=== PATIENT | female | born 1985 | race African-American/Black ===

== ENCOUNTER 2017-04-25 15:06 | Observation (INO) ==
[2017-04-25 15:35] LABS: Basophils % 0.1 % (0.0-0.8); Hematocrit 35.6 VOL% (35.7-47.0); Hemoglobin 12.4 GM/DL (12.0-16.0); Immature Granulocytes % 0.3 %; Immature Granulocytes Absolute 0.03 #; Lymphocytes # 1.5 10*3/uL (1.4-4.0); Lymphocytes % 15.4 % (21.3-54.2); Mean Corpuscular HGB Conc 34.8 GM/DL (32-36); Mean Corpuscular Hemoglobin 30 PG (27-34); Mean Corpuscular Volume 86.4 FL (87-102); Mean Platelet Volume 9.9 FL (9.6-12.0); Monocytes # 0.6 10*3/uL (0.11-0.8); Monocytes % 5.9 % (1.7-12.7); Neutrophils # 7.7 10*3/uL (1.4-7.4); Neutrophils % 78.3 % (38.7-73.9); Platelet Count 307 T/CUMM (130-400); Red Blood Count 4.12 MC/CUMM (3.8-5.5); Red Cell Distribution Width 14.6 % (9.3-17.3); White Blood Count 9.8 T/CUMM (4-12)
[2017-04-25 15:49] LABS: Apearance,Urine Slightly Hazy (Clear); Bacteria,Urine Moderate /HPF (Few); Bilirubin,Urine Negative (Negative); Blood, Urine Large mg/dL (Negative); Glucose,Urine (UA) Negative (Negative); Ketones,Urine 20 mg/dL (Negative); Mucus,Urine Few /LPF (Occasional); Nitrite,Urine Positive (Negative); Protein,Urine 30 MG/DL; RBC,Urine 11 /HPF (0-4); Squamous Epithelial Cell,Urine Occasional /HPF (0-10); Urine Color Yellow (Yellow); Urine Specific Gravity 1.016 (1.001-1.035); WBC,Urine 2 /HPF (0-6)
[2017-04-25 16:02] LABS: Acetaminophen < 2.0 UG/ML (10-30); Salicylate 5.6 MG/DL (2.8-20)
[2017-04-25] MEDS ORDERED: cefTRIAXone 1,000 MG in SODIUM CHLORIDE 0.9% 100 ML IV STA (16:10)
[2017-04-25 16:12] LABS: Alanine Aminotransferase 15 U/L (13-56); Albumin 3.9 G/DL (3.4-5.0); Alkaline Phosphatase 60 U/L (45-117); Aspartate Amino Transferase 12 U/L (0-37); Blood Urea Nitrogen 9 MG/DL (7-18); Calcium 9.3 MG/DL (8.5-10.1); Free T4 (Free Thyroxine) 1.48 NG/DL (0.76-1.46); Glucose 84 MG/DL (74-106); Osmolality,Calculated 276.4 MOS/KG (273-304); Potassium 3.1 MMOL/L (3.5-5.1); Sodium 140 MMOL/L (136-145); Thyroid Stimulating Hormone 0.793 uIU/ml (0.358-3.74); Total Protein 8.6 G/DL (6.4-8.3)
[2017-04-25] MEDS ORDERED: cefTRIAXone 1,000 MG VIAL ONE (16:14)
[2017-04-25 16:20] LABS: Barbiturates Screen,Urine Negative (Negative); Benzodiazepines Screen,Urine Negative (Negative); Cannabinoid Screen,Urine Positive (Negative); Opiate Screen,Urine Negative (Negative); Phencyclidine Screen,Urine Negative (Negative)
[2017-04-25] MEDS ORDERED: ONDANSETRON 4 MG/2 ML VIAL IV PRN (19:34)
[2017-04-25] MEDS ORDERED: POTASSIUM CHLORIDE INJ 40 MEQ in SODIUM CHLORIDE 0.45% 1,000 ML IV SCH (20:00)
[2017-04-25] MEDS: POTASSIUM CHLORIDE RIDER 10 MEQ in PREMIX 1 EACH IV SCH ×3 (21:13→23:46)
[2017-04-26] MEDS: POTASSIUM CHLORIDE RIDER 10 MEQ in PREMIX 1 EACH IV SCH (01:31)
[2017-04-26 09:56] LABS: Calcium 8.4 MG/DL (8.5-10.1); Osmolality,Calculated 277.3 MOS/KG (273-304); Potassium 4.1 MMOL/L (3.5-5.1)
[2017-04-26 14:48] VITALS: BP 119/70
[2017-04-26] MEDS ORDERED: cefTRIAXone 1,000 MG in SYRINGE 1 EACH IV SCH (16:00)
== END 2017-04-26 14:10 ==
LOC: EDUNIT# → EDBD → N.EDINP 15:06 → N.ED 15:06 → N.4E 19:06
PROVIDERS: ADMIT Internal Medicine; ATTEND Internal Medicine

== ENCOUNTER 2019-10-19 18:01 | Inpatient (IN) ==
[2019-10-19] MEDS ORDERED: ONDANSETRON 4 MG/2 ML VIAL IV STA (18:39)
[2019-10-19] MEDS ORDERED: MORPHINE 4 MG/1 ML VIAL IV ONE (18:39)
[2019-10-19] MEDS ORDERED: MEPERIDINE 50 MG/1 ML VIAL ONE (20:10)
[2019-10-19] MEDS ORDERED: MEPERIDINE 50 MG/1 ML VIAL IV STA (20:10)
[2019-10-19] MEDS ORDERED: SODIUM CHLORIDE 0.9% 1,000 ML IV STA (20:45)
[2019-10-19] MEDS ORDERED: MAGNESIUM HYDROXIDE SUSP 30 ML UDCUP PO PRN (21:11)
[2019-10-19] MEDS ORDERED: MORPHINE 4 MG/1 ML VIAL IV PRN (21:11)
[2019-10-19 23:52] LABS: Apearance,Urine CLEAR (Clear); Bilirubin,Urine Negative (Negative); Blood, Urine Moderate mg/dL (Negative); Glucose,Urine (UA) Negative (Negative); Ketones,Urine 5 mg/dL (Negative); Mucus,Urine Occasional /LPF (Occasional); Nitrite,Urine Negative (Negative); Protein,Urine Negative; RBC,Urine 8 /HPF (0-4); Squamous Epithelial Cell,Urine Occasional /HPF (0-10); Urine Color Yellow (Yellow); Urine Specific Gravity 1.014 (1.001-1.035); Urine Urobilinogen < 2.0 EU/DL (0.2-1.0); WBC,Urine 2 /HPF (0-6)
[2019-10-20 00:41] LABS: Alanine Aminotransferase 14 U/L (13-56); Alkaline Phosphatase 52 U/L (45-117); Aspartate Amino Transferase 8 U/L (0-37); Bilirubin,Total < 0.39 MG/DL (0.2-1.0); Blood Urea Nitrogen 8 MG/DL (7-18); Calcium 8.4 MG/DL (8.5-10.1); Estimated Glom Filtration Rate 169 ML/MIN; Glucose 96 MG/DL (74-106); Total Protein 7.1 G/DL (6.4-8.3)
[2019-10-20 00:56] LABS: Basophils % 0.1 % (0.0-0.8); Hematocrit 34.8 VOL% (35.7-47.0); Hemoglobin 11.5 GM/DL (12.0-16.0); Immature Granulocytes % 0.3 %; Immature Granulocytes Absolute 0.03 #; Lymphocytes # 1.8 10*3/uL (1.4-4.0); Lymphocytes % 18.7 % (21.3-54.2); Mean Corpuscular Volume 89.7 FL (87-102); Mean Platelet Volume 9.8 FL (9.6-12.0); Monocytes % 5.7 % (1.7-12.7); Neutrophils % 75.2 % (38.7-73.9); Platelet Count 264 T/CUMM (130-400); Red Blood Count 3.88 MC/CUMM (3.8-5.5); White Blood Count 9.8 T/CUMM (4-12)
[2019-10-20] MEDS: LACTATED RINGERS 1,000 ML IV SCH ×2 (01:08→11:05)
[2019-10-20] MEDS: MORPHINE 4 MG/1 ML VIAL IV PRN ×4 (01:08→11:02)
[2019-10-20] MEDS: ONDANSETRON 4 MG/2 ML VIAL IV PRN (11:02)
[2019-10-20] MEDS ORDERED: ROPIVACAINE 0.5% 30 ML VIAL ONE (11:11)
[2019-10-20] MEDS ORDERED: DEXAMETHASONE 4 MG/1 ML VIAL ONE (11:12)
[2019-10-20] MEDS ORDERED: ceFAZolin 1,000 MG VIAL ONE (12:31)
[2019-10-20] MEDS ORDERED: BACITRACIN OINT 0.9 GM PACK TOP ONE (12:55)
[2019-10-20] MEDS: HYDROmorphone 2 MG/1 ML VIAL IV PRN ×4 (13:55→14:15)
[2019-10-20] MEDS ORDERED: ceFAZolin 2,000 MG in PREMIX 1 EACH IV ONE (14:00)
[2019-10-20] MEDS ORDERED: ONDANSETRON 4 MG/2 ML VIAL IV PRN (14:01)
[2019-10-20] MEDS ORDERED: propofoL 200 MG/20 ML VIAL IV ONE (14:02)
[2019-10-20] MEDS ORDERED: fentaNYL 100 MCG/2 ML VIAL ONE (14:03)
[2019-10-20] MEDS ORDERED: LACTATED RINGERS 1,000 ML IV ONE (14:03)
[2019-10-20] MEDS ORDERED: MIDAZOLAM 2 MG/2 ML VIAL ONE ×2 (14:03→14:30)
[2019-10-20] MEDS ORDERED: SEVOFLURANE 1 UNIT/15 MINUTE INH ONE (14:03)
[2019-10-20] MEDS ORDERED: LIDOCAINE 2% 5 ML VIAL ONE (14:03)
[2019-10-20] MEDS ORDERED: HYDROmorphone 2 MG/1 ML VIAL ONE (14:06)
[2019-10-20] MEDS ORDERED: ONDANSETRON 4 MG/2 ML VIAL ONE (14:06)
[2019-10-20] MEDS ORDERED: MIDAZOLAM 2 MG/2 ML VIAL IV ONE (14:35)
[2019-10-20] MEDS ORDERED: FONDAPARINUX 2.5 MG/0.5 ML SYRINGE SUBCUT SCH (21:30)
[2019-10-21] MEDS: ONDANSETRON 4 MG/2 ML VIAL IV PRN (08:42)
[2019-10-21] MEDS: MORPHINE 4 MG/1 ML VIAL IV PRN (08:43)
[2019-10-21] MEDS: LACTATED RINGERS 1,000 ML IV SCH (10:35)
[2019-10-21 12:33] VITALS: BP 124/70
== END 2019-10-21 15:45 | disposition home or self-care (01) | DRG 494 ==
LOC: N.ED 18:01 → N.EDINP 21:11 → N.3E 22:49
PROVIDERS: ADMIT Orthopaedic Surgery; ATTEND Orthopaedic Surgery